=== PATIENT | female | born 1995 | race Hispanic/Latino ===

== ENCOUNTER 2017-04-04 19:33 | Emergency (ER) | payer MEDICAID ==
[2017-04-04 19:48] VITALS: BP 125/82; PULSE 92; RESP 18; TEMP 96.7; O2SAT 100
--- NOTE | 2017-04-04 19:52 | ED PDOC ---
HPI: Skin/Bite Injury Time Seen by Provider: 04/04/17 19:43 Chief Complaint (Nursing): Bite Chief Complaint (Provider): Bite History Per: Patient History/Exam Limitations: no limitations Onset/Duration Of Symptoms: Hrs Additional Complaint(s): 22 year old female presents to the emergency department after she was bit by a dog in a park prior to arrival. Dog bit patient on the right forearm and wrist region. Patient states she wanted to ask the technical systems architect if dog was vaccinated but technical systems architect ran away with the dog. Denies fever, chills, or any further medical complaints. Tetanus shot not up to date. Of note, patient's father cleaned her with water, soap, and alcohol to clean the wound. Past Medical History Reviewed: Historical Data, Nursing Documentation, Vital Signs Vital Signs: Last Vital Signs Temp 96.7 F L 04/04/17 19:45 Pulse 92 H 04/04/17 19:45 Resp 18 04/04/17 19:45 BP 125/82 04/04/17 19:45 Pulse Ox 100 04/04/17 21:01 - Medical History PMH: No Chronic Diseases - Surgical History Surgical History: No Surg Hx - Family History Family History: States: Unknown Family Hx - Living Arrangements Living Arrangements: With Family - Social History Current smoker - smoking cessation education provided: No Alcohol: None Drugs: Denies - Home Medications Home Medications: Ambulatory Orders Medication Instructions Recorded Amoxicillin/Clavulanate [Augmentin 1 tab PO BID #20 tab 04/04/17 875 MG-125 MG] - Allergies Allergies/Adverse Reactions: Allergies Allergy/AdvReac Type Severity Reaction Status Date / Time shellfish derived Allergy RASH Verified 04/04/17 19:45 cats Allergy RASH Uncoded 04/04/17 19:45 Review of Systems ROS Statement: Except As Marked, All Systems Reviewed And Found Negative (As per HPI, otherwise negative) Constitutional: Negative for: Fever, Chills Musculoskeletal: Positive for: Arm Pain (Right forearm region ), Hand Pain ( Right wrist region) Physical Exam - Reviewed Nursing Documentation Reviewed: Yes Vital Signs Reviewed: Yes - Physical Exam Appears: Positive for: Non-toxic, No Acute Distress Head Exam: Positive for: ATRAUMATIC, NORMAL INSPECTION, NORMOCEPHALIC Skin: Positive for: Normal Color, Warm, Dry Extremity: Positive for: Normal ROM (full), Swelling (Superficial lesions on the forearm and wrist with some ecchymosis. ). Negative for: Other (No active bleeding) Neurologic/Psych: Positive for: Alert, Oriented (x3) - ECG O2 Sat by Pulse Oximetry: 100 (RA) Pulse Ox Interpretation: Normal Medical Decision Making Medical Decision Making: Time: 1952 Initial impression: Dog bite Initial plan: --Rabies Vaccine 2.5 units IM --Rabies Immune Globulin 1,420 intlu IM --Tetanus 0.5 ml IM --Reevaluation Scribe Attestation: Documented by Mela Gomez, acting as a scribe for Kaylie Peña PA-C Provider Scribe Attestation: All medical record entries made by the Scribe were at my direction and personally dictated by me. I have reviewed the chart and agree that the record accurately reflects my personal performance of the history, physical exam, medical decision making, and the department course for this patient. I have also personally directed, reviewed, and agree with the discharge instructions and disposition. Disposition - Clinical Impression Clinical Impression: Animal bite wound, Tetanus toxoid vaccination administered at current visit, Encounter for prophylactic administration of rabies immune globulin - Disposition Disposition: Routine/Home Disposition Time: 22:12 Condition: GOOD Prescriptions: Amoxicillin/Clavulanate [Augmentin 875 MG-125 MG] 1 tab PO BID #20 tab Instructions: Animal Bite (ED) Forms: [facility] [facility] (Spanish)
[2017-04-04] MEDS ORDERED: RABIES VACCINE 2.5 Units PDR IM ONE (20:48)
[2017-04-04] MEDS ORDERED: Rabies Immune Globulin 150 INTLU/ML VIAL IM STA (20:49)
== END 2017-04-04 22:17 | disposition home or self-care (01) ==
LOC: H.ER 19:33
DX: S41.131A Puncture wound without foreign body of right upper arm, initial encounter (principal); W54.0XXA Bitten by dog, initial encounter; Y92.89 Other specified places as the place of occurrence of the external cause

== ENCOUNTER 2017-07-25 18:53 | Emergency (ER) | payer MEDICAID ==
[2017-07-25 18:54] VITALS: BMI 29.9
[2017-07-25 19:06] VITALS: BP 120/50; PULSE 92; RESP 18; TEMP 98.2; O2SAT 99
--- NOTE | 2017-07-25 21:35 | ED PDOC ---
HPI: Abdomen Time Seen by Provider: 07/25/17 19:52 Chief Complaint (Nursing): Abdominal Pain Chief Complaint (Provider): Abdominal Pain History Per: Patient History/Exam Limitations: no limitations Onset/Duration Of Symptoms: Days (x3 weeks) Current Symptoms Are (Timing): Still Present Additional Complaint(s): 22 y/o female with a pmhx of asthma, who presents to the ED complaining of lower abdominal cramping x3 days. Patient states the pain is constant and reports she is 15 weeks . States she had a normal US for this in June. Patient is A2 (1 ectopic). Patient is concerned she has a high risk due to this. Reports her RULES EXAMINER is in [place], which is where she is originally from. Patient denies syncope, urinary problems, chest pain, shortness of breath, and vaginal bleeding. Reports lower back pain. Past Medical History Reviewed: Historical Data, Nursing Documentation, Vital Signs Vital Signs: Last Vital Signs Temp 98.2 F 07/25/17 19:03 Pulse 92 H 07/25/17 19:03 Resp 18 07/25/17 19:03 BP 120/50 L 07/25/17 19:03 Pulse Ox 99 07/25/17 23:35 - Medical History PMH: Asthma, HTN, Migraine - Surgical History Surgical History: No Surg Hx - Family History Family History: States: Unknown Family Hx - Immunization History Hx Tetanus Toxoid Vaccination: No Hx Influenza Vaccination: No Hx Pneumococcal Vaccination: No - Home Medications Home Medications: Ambulatory Orders Medication Instructions Recorded Acyclovir 500 mg PO DAILY 03/01/16 Albuterol Sulfate 1 puff PO PRN PRN 03/01/16 Multivit/Folic Acid/I 1 tab PO DAILY #30 tab 03/01/16 [ Plus] Amoxicillin/Clavulanate [Augmentin 1 tab PO BID #20 tab 04/04/17 875 MG-125 MG] Amoxicillin/Clavulanate [Augmentin 1 tab PO BID #14 tab 04/07/17 875 MG-125 MG] Nitrofurantoin Macrocrystals 1 cap PO BID #14 cap 07/25/17 [Macrobid] - Allergies Allergies/Adverse Reactions: Allergies Allergy/AdvReac Type Severity Reaction Status Date / Time cat dander Allergy RASH Verified 03/06/16 11:44 shellfish derived Allergy RASH Verified 04/04/17 19:45 shrimp Allergy RASH Verified 03/06/16 11:44 cats Allergy RASH Uncoded 04/04/17 19:45 Review of Systems ROS Statement: Except As Marked, All Systems Reviewed And Found Negative Cardiovascular: Negative for: Chest Pain Respiratory: Negative for: Shortness of Breath Gastrointestinal: Positive for: Abdominal Pain Genitourinary Female: Negative for: Dysuria, Frequency, Incontinence, Hematuria , Vaginal Bleeding Musculoskeletal: Positive for: Back Pain Physical Exam - Reviewed Nursing Documentation Reviewed: Yes Vital Signs Reviewed: Yes - Physical Exam Appears: Positive for: Non-toxic, No Acute Distress Head Exam: Positive for: ATRAUMATIC, NORMAL INSPECTION, NORMOCEPHALIC Skin: Positive for: Normal Color, Warm, Dry. Negative for: Rash Eye Exam: Positive for: EOMI, Normal appearance, PERRL Neck: Positive for: Normal, Painless ROM, Supple Cardiovascular/Chest: Positive for: Regular Rate, Rhythm. Negative for: Murmur Respiratory: Positive for: Normal Breath Sounds. Negative for: Respiratory Distress Gastrointestinal/Abdominal: Positive for: Tenderness (superpubic) Back: Positive for: Normal Inspection. Negative for: L CVA Tenderness, R CVA Tenderness, Vertebral Tenderness Extremity: Positive for: Normal ROM. Negative for: Pedal Edema, Deformity Neurologic/Psych: Positive for: Alert, Oriented. Negative for: Motor/Sensory Deficits - Laboratory Results Urine POC: Positive - ECG O2 Sat by Pulse Oximetry: 99 (RA) Pulse Ox Interpretation: Normal Medical Decision Making Medical Decision Making: Time: 20:05 Initial Impression: Abdominal pain in 2nd trimester . Differential diagnoses include, but are not limited to: threatened miscarriage, demise, UTI Plan: --Urine --Urine dipstick --US OB --Reevaluation (+) Urine Dipstick Time: 23:15 US OB FINDINGS: Fetus: Single live intrauterine gestation. Heart rate: heart rate of 135 beats per minute. Presentation: Transverse. Placenta: Anterior placenta. No placenta previa or abruption. Amniotic fluid: Normal. Anatomy: No gross anomaly is appreciated. BIOMETRICS Gestational age: Estimated gestational age of 15 weeks 0 days by measurements. EFW: Estimated weight of 112 g. BPD: 2.8 cm, correlating with 15 weeks 0 days. HC: 10.5 cm, correlating with 15 weeks 0 days. AC: 9.8 cm, correlating with 15 weeks 6 days. FL: 1.4 cm, correlating with 14 weeks 2 days. MATERNAL: Uterus: Unremarkable. No myometrial mass. Cervix: No cervical dilatation or effacement. Adnexa: Normal ovaries. No adnexal masses. Free fluid: No significant free fluid. IMPRESSION: 1. Single live intrauterine gestation. Scribe Attestation: Documented by Naldo Celestin, acting as a scribe for Jared Porras MD. Provider Scribe Attestation: All medical record entries made by the Scribe were at my direction and personally dictated by me. I have reviewed the chart and agree that the record accurately reflects my personal performance of the history, physical exam, medical decision making, and the department course for this patient. I have also personally directed, reviewed, and agree with the discharge instructions and disposition. Disposition - Clinical Impression Clinical Impression: Abdominal pain during , UTI (urinary tract infection) - Patient ED Disposition Is Patient to be Admitted: No Doctor Will See Patient In The: Office Counseled Patient/Family Regarding: Studies Performed, Diagnosis, Need For Followup - Disposition Referrals: [facility] [Outside] Disposition: Routine/Home Disposition Time: 23:36 Condition: GOOD Additional Instructions: Follow up with your PCP in 2-3 days. Prescriptions: Nitrofurantoin Macrocrystals [Macrobid] 1 cap PO BID #14 cap Instructions: Urinary Tract Infections in Adults, Threatened Miscarriage
--- NOTE | 2017-07-25 23:15 | US ---
EXAM: US After First Trimester, Transabdominal CLINICAL HISTORY: 22 years old, female; Signs and symptoms; Lmp or gestational age (in weeks): Unsure thinks 03/24/17; Other: Feels crampy; ; Additional info: Lower abdominal cramping TECHNIQUE: Real-time transabdominal obstetrical ultrasound of the maternal pelvis and a second or third trimester with image documentation. COMPARISON: No relevant prior studies available. FINDINGS: Fetus: Single live intrauterine gestation. Heart rate: heart rate of 135 beats per minute. Presentation: Transverse. Placenta: Anterior placenta. No placenta previa or abruption. Amniotic fluid: Normal. Anatomy: No gross anomaly is appreciated. BIOMETRICS Gestational age: Estimated gestational age of 15 weeks 0 days by measurements. EFW: Estimated weight of 112 g. BPD: 2.8 cm, correlating with 15 weeks 0 days. HC: 10.5 cm, correlating with 15 weeks 0 days. AC: 9.8 cm, correlating with 15 weeks 6 days. FL: 1.4 cm, correlating with 14 weeks 2 days. MATERNAL: Uterus: Unremarkable. No myometrial mass. Cervix: No cervical dilatation or effacement. Adnexa: Normal ovaries. No adnexal masses. Free fluid: No significant free fluid. IMPRESSION: 1. Single live intrauterine gestation.
== END 2017-07-25 23:48 | disposition home or self-care (01) ==
LOC: H.ER 18:53
DX: O23.40 Unspecified infection of urinary tract in pregnancy, unspecified trimester (principal); I10 Essential (primary) hypertension; J45.909 Unspecified asthma, uncomplicated